=== PATIENT | male | born 1980 | race Caucasian/White ===

== ENCOUNTER 2021-10-28 11:20 | Inpatient (IN) | payer MEDICARE, OTHER ==
[~2021-10-28] VITALS: Ht 177.8 cm; Wt 95.7 kg
[2021-10-28] MEDS ORDERED: VANCOMYCIN 1 GM in IV D5W 250 ML IV ONE (11:30)
[2021-10-28] MEDS ORDERED: PIPERACILLIN /TAZOBACTAM 3.375 G in IV D5W 50 ML IV ONE (11:30)
--- NOTE | 2021-10-28 11:40 | NUR ---
RONALDO HOPE FROM [facility] DUE TO ELEVATED WBC. PT HAS A WOUND ON RLE STARTED [address] HARRELL AT BEDSIDE FOR EVAL.
[2021-10-28 12:08] LABS: BASOPHILS % (AUTO) 0.1 % (0.0-2.0); EOSINOPHILS % (AUTO) 0.1 % (0.0-6.0); HEMATOCRIT 26 % (39-51); HEMOGLOBIN 8.2 g/dL (13.5-17.5); LYMPHOCYTES # (AUTO) 0.3 K/uL (0.8-4.8); LYMPHOCYTES % (AUTO) 1.3 % (20.0-44.0); MEAN CORPUSCULAR HGB CONC 32 g/dl (31.0-36.0); MEAN CORPUSCULAR VOLUME 73 fL (80-96); MONOCYTES # (AUTO) 0.5 K/uL (0.1-1.30); NEUTROPHILS # (AUTO) 24.7 K/uL (1.8-8.9); NEUTROPHILS % (AUTO) 96.5 % (43.0-81.0); PLATELET COUNT (AUTO) 302 K/uL (150-450); RED BLOOD CELL COUNT(AUTO) 3.51 MIL/uL (4.5-6.0); WHITE BLOOD COUNT (AUTO) 25.6 K/uL (4.3-11.0)
--- NOTE | 2021-10-28 12:18 | NUR ---
COVID TEST COLLECTED AND SENT
[2021-10-28 12:26] LABS: ALANINE AMINOTRANSFERASE 32 U/L (12-78); ALBUMIN 2.8 g/dL (3.4-5.0); ALKALINE PHOSPHATASE 106 U/L (46-116); ASPARTATE AMINOTRANSFERASE 30 U/L (15-37); BILIRUBIN,DIRECT 0.2 mg/dL (0.0-0.2); BILIRUBIN,TOTAL 0.6 mg/dL (0.2-1.0); CALCIUM, SERUM 7.2 mg/dL (8.5-10.1); CARBON DIOXIDE 26 mmol/L (21-32); CHLORIDE 91 mmol/L (98-107); CREATININE 4.3 mg/dL (0.6-1.3); GLUCOSE 80 mg/dL (74-106); SODIUM SERUM 126 mmol/L (136-145); TOTAL PROTEIN, SERUM 6.9 g/dL (6.4-8.2); UREA NITROGEN, BLOOD 45 mg/dL (7-18)
--- NOTE | 2021-10-28 13:17 | NUR ---
CALLED NURSING SUP ANTELMO PT BED
[2021-10-28] MEDS ORDERED: ALBU18HF2 IH (13:18)
[2021-10-28] MEDS ORDERED: LEVO150T8 PO (13:18)
[2021-10-28] MEDS ORDERED: DIVA125C2 PO (13:18)
[2021-10-28] MEDS ORDERED: FOLI0.4T6 PO (13:18)
[2021-10-28] MEDS ORDERED: LORA-259 PO (13:18)
[2021-10-28] MEDS ORDERED: MULT-447 PO (13:18)
[2021-10-28] MEDS ORDERED: BETA15CR4 TP (13:18)
[2021-10-28] MEDS ORDERED: ACET-868 PO (13:18)
[2021-10-28] MEDS ORDERED: FERR325T23 PO (13:18)
[2021-10-28] MEDS ORDERED: GABA-532 PO (13:18)
[2021-10-28] MEDS ORDERED: OXYC5TAB3 PO (13:18)
[2021-10-28] MEDS ORDERED: AMIN30LI2 PO (13:18)
[2021-10-28] MEDS ORDERED: LIDOCAINE 2% JEL UROJET 10 ML MM ONE ×2 (15:13)
[2021-10-28] MEDS ORDERED: VANCOMYCIN 500 MG in IV D5W 100 ML IV PRN ×2 (15:30→18:45)
[2021-10-28] MEDS ORDERED: ONDANSETRON HCL/PF 4 MG/2 ML VIAL IVP PRN ×2 (15:30→18:45)
[2021-10-28] MEDS ORDERED: IV NS 0.9% 1,000 ML IV PRN ×2 (15:30→18:45)
[2021-10-28] MEDS ORDERED: MAGNESIUM HYDROXIDE 30 ML UDC PO PRN ×2 (15:30→22:00)
[2021-10-28] MEDS ORDERED: ACETAMINOPHEN 325 MG TABLET PO PRN ×2 (15:30→18:45)
[2021-10-28] MEDS ORDERED: MORPHINE SULFATE INJ 2 MG/ML DISP.SYRIN IV PRN (16:00)
--- NOTE | 2021-10-28 16:01 | NUR ---
URINE COLLECTED AND SENT
[2021-10-28 16:09] LABS: BILIRUBIN,URINE NEGATIVE (NEGATIVE); COLOR,URINE DARK YELLOW (YELLOW); LEUKOCYTE ESTERASE ,URINE MODERATE (NEGATIVE); NITRITE, URINE NEGATIVE (NEGATIVE); PH,URINE 5.5 (5.0-8.0); PROTEIN,URINE 30 mg/dl (NEGATIVE); UGLUCOSE NEGATIVE (NEGATIVE); UROBILINOGEN,URINE 0.2 EU/dL (0.2)
[2021-10-28] MEDS ORDERED: CEFTRIAXONE 2 G in IV D5W 100 ML IV SCH ×2 (16:30→20:00)
[2021-10-28 16:41] LABS: BACTERIA,URINE Many /HPF (None Seen); SQUAMOUS EPITHELIAL CELL,UR Many /HPF (None Seen)
[2021-10-28 16:42] LABS: HYALINE CASTS, URINE Few /LPF (None Seen); WBC,URINE 51-80 /HPF (0-3)
--- NOTE | 2021-10-28 17:22 | NUR ---
ROOM 324-1
--- NOTE | 2021-10-28 17:37 | NUR ---
REPORT GIVE TO ELENITAISSA FOR LLOYD
--- NOTE | 2021-10-28 18:33 | NUR ---
THE PATIENT IS TRANSFERED TO ROOM 324-1 IN STABLE CONDITION AND PER POLICY.
[2021-10-28 18:35] VITALS: BP 94/52
--- NOTE | 2021-10-28 18:35 | NUR ---
RN MS NOTES RECEIVED PT FROM E.R. STAFF VIA [facility], ASSISTED TO BED, MADE COMFORTABLE, PT IS AWAKE, ALERT AND ORIENTED, NO COMPLAINT OF PAIN AT THIS TIME, RESPIRATIONS NORMAL, ON O2 AT 2LPM VIA N/C WITH O2 SAT OF 100%, ROOM SET UP ORIENTATION PROVIDED, VERBALIZED UNDERSTANDING, NEEDS ATTENDED, VITALS TAKEN AND RECORDED.
[2021-10-28] MEDS ORDERED: VANCOMYCIN 500 MG in IV D5W 100ml IV ONE (20:30)
[2021-10-28] MEDS: IV NS 0.9% 1,000 ML IV PRN (20:56)
[2021-10-28] MEDS ORDERED: HEPARIN SODIUM, PORCINE 5000 UNITS/1 ML VIAL SQ SCH (21:00)
[2021-10-28] MEDS: HEPARIN SODIUM, PORCINE 5000 UNITS/1 ML VIAL SQ SCH (22:05)
[2021-10-28] MEDS: MORPHINE SULFATE INJ 2 MG/ML DISP.SYRIN IV PRN (22:07)
[2021-10-29] MEDS: MORPHINE SULFATE INJ 2 MG/ML DISP.SYRIN IV PRN ×5 (02:42→20:16)
--- NOTE | 2021-10-29 05:11 | NUR ---
Closing NOTES: admiteed 10/28 1929 from the ER from [facility] for cellulitis right leg and sepsis He has been afebrile this 12 hours continent using the urinal placed on the bedpan and passed flatus No BM IV fluid running as ordered Medicated with Morphine 2 mg Q 4 hours for right leg pain Noted over his body mulitple open small too some are scabbed no drainage photo of the right leg and wounds in the chart right legs is red up to the groin area and warm to touch right great toe partially amputed noted on the top of the toe steri strips CDI Vanco Random is ordered for this AM
[2021-10-29 07:57] LABS: CALCIUM, SERUM 7.2 mg/dL (8.5-10.1); CREATININE 6.2 mg/dL (0.6-1.3); POTASSIUM 4.1 mmol/L (3.5-5.1)
[2021-10-29 08:00] VITALS: BP 121/54
--- NOTE | 2021-10-29 08:02 | NUR ---
RN MS NOTES RECEIVED PT FROM PM SHIFT. AM RN INTRODUCED SELF. PT IS AWAKE, ALERT AND ORIENTED X4. NO COMPLAINT OF PAIN AT THIS TIME, RESPIRATIONS NORMAL, ON O2 AT 2LPM VIA N/C WITH O2 SAT OF 100%, BEDRAILS UP X2, CALL LIGHT AT BEDSIDE, ROOM SET UP ORIENTATION PROVIDED,VERBALIZED UNDERSTANDING, WILL CONTINUE TO MONITOR.
[2021-10-29] MEDS: MULTIVIT W/MINERALS 1 TAB TABLET PO SCH (08:26)
[2021-10-29] MEDS: LEVOTHYROXINE SODIUM 75 MCG TABLET PO SCH (08:27)
[2021-10-29] MEDS: FOLIC ACID 1 MG TABLET PO SCH (08:30)
[2021-10-29] MEDS: PROSOURCE / PROSTAT (PYXIS) 30 ML UDC PO SCH (08:31)
[2021-10-29] MEDS: HEPARIN SODIUM, PORCINE 5000 UNITS/1 ML VIAL SQ SCH ×2 (10:17→20:19)
[2021-10-29] MEDS: IV NS 0.9% 1,000 ML IV PRN ×2 (10:22→23:21)
--- NOTE | 2021-10-29 10:37 | NUR ---
WOUND CARE CONSULT: PT HAVING PROCEDURE AT THIS TIME. REVIEWED CHART, NURSING DOCUMENTATION AND PHOTOS WHICH INDICATE TOE WOUND AND RT LOWER LEG REDNESS. DPM CONSULT CALLED TO DR HAMPAPUR. AYALA IN AGREEMENT WITH PLAN OF CARE.
[2021-10-29 10:53] LABS: BASOPHILS # (AUTO) 0.1 K/uL (0.0-0.2); BASOPHILS % (AUTO) 0.6 % (0.0-2.0); HEMATOCRIT 23 % (39-51); HEMOGLOBIN 7.4 g/dL (13.5-17.5); LYMPHOCYTES # (AUTO) 0.4 K/uL (0.8-4.8); LYMPHOCYTES % (AUTO) 2.4 % (20.0-44.0); MEAN CORPUSCULAR HGB CONC 33 g/dl (31.0-36.0); MEAN CORPUSCULAR VOLUME 72 fL (80-96); MONOCYTES # (AUTO) 0.5 K/uL (0.1-1.30); MONOCYTES % (AUTO) 2.7 % (2.0-12.0); NEUTROPHILS # (AUTO) 17.2 K/uL (1.8-8.9); NEUTROPHILS % (AUTO) 93.3 % (43.0-81.0); PLATELET COUNT (AUTO) 266 K/uL (150-450); RED BLOOD CELL COUNT(AUTO) 3.13 MIL/uL (4.5-6.0); WHITE BLOOD COUNT (AUTO) 18.4 K/uL (4.3-11.0)
[2021-10-29 11:20] LABS: BAND % (MANUAL) 4 % (0.0-5.0); EOSINOPHILS % (MANUAL) 3 % (0-4); MONOCYTES % (MANUAL) 2 % (0-11.0)
[2021-10-29 11:22] LABS: LYMPHOCYTES % (MANUAL) 1 % (16-48); NEUTROPHILS % (MANUAL) 90 (42-76)
--- NOTE | 2021-10-29 12:07 | NUR ---
PT REQUESTED PAIN MEDS DUE TO GENERALIZED PAIN 01/07. PRN PAIN MED ADMINISTERED BY RN @ 1200. PT REQUESTED OXYGEN, GIVEN 2 L VIA NASAL CANULA, RN WILL CONT TO MONITOR.
--- NOTE | 2021-10-29 15:13 | NUR ---
MS RN NOTE RN ASKED PT FOR LAST BM. PT REPORTS LAST BM WAS 08/24/2021, RN OFFERED PRUNE JUICE, ADVISED PT TO CALL RN/CARPET LAYER HELPER FOR ASSISTANCE IF HE FEELS THE URGE TO HAVE BM, PT VERBALIZED UNDERSTANDING, WILL CONT TO MONITOR.
[2021-10-29 16:00] VITALS: BP 115/56
[2021-10-29] MEDS ORDERED: CEFEPIME 1 GM VIAL IM SCH (17:30)
[2021-10-29] MEDS ORDERED: CEFEPIME 1 GM in IV D5W 50 ML IV SCH (18:00)
--- NOTE | 2021-10-29 18:28 | NUR ---
RN MS CLOSING NOTE MS RN CLOSING NOTES PT IS AWAKE, ALERT AND ORIENTED X4. PRN PAIN MED GIVEN AT 1200 AND 1600 NO COMPLAINT OF PAIN AT THIS TIME, RESPIRATIONS NORMAL, ON O2 AT 2LPM VIA N/C WITH O2 SAT OF 100%, BED RAILS UP X2, CALL LIGHT AT BEDSIDE. WILL ENDORSE.
[2021-10-29 20:00] VITALS: BP 100/57
[2021-10-30] VITALS (8 sets, daily range): BP systolic 108–122; BP diastolic 62–81
[2021-10-30] MEDS: MORPHINE SULFATE INJ 2 MG/ML DISP.SYRIN IV PRN ×6 (03:22→22:29)
--- NOTE | 2021-10-30 04:50 | NUR ---
Closing Notes: alert and orientated X4 enjoys conversation changes his own position in the bed throughtout the night uses the urinal thru the night kept hubert feet elevated thru the night medicated X2 for generalized pain and effective continent
[2021-10-30 05:12] LABS: CREATININE, URINE 94.6 MG/DL (30.0-125.0); URINE TOTAL PROTEIN 115.7 mg/dL (0-11.9)
[2021-10-30 06:53] LABS: BASOPHILS % (AUTO) 0.2 % (0.0-2.0); EOSINOPHILS % (AUTO) 1.8 % (0.0-6.0); HEMATOCRIT 21 % (39-51); LYMPHOCYTES # (AUTO) 0.5 K/uL (0.8-4.8); LYMPHOCYTES % (AUTO) 3.5 % (20.0-44.0); MEAN CORPUSCULAR HGB CONC 34 g/dl (31.0-36.0); MEAN CORPUSCULAR VOLUME 72 fL (80-96); MONOCYTES % (AUTO) 7.3 % (2.0-12.0); NEUTROPHILS # (AUTO) 12.3 K/uL (1.8-8.9); NEUTROPHILS % (AUTO) 87.2 % (43.0-81.0); PLATELET COUNT (AUTO) 220 K/uL (150-450); RED BLOOD CELL COUNT(AUTO) 2.87 MIL/uL (4.5-6.0); WHITE BLOOD COUNT (AUTO) 14.1 K/uL (4.3-11.0)
[2021-10-30 07:18] LABS: CALCIUM, SERUM 7.3 mg/dL (8.5-10.1); MAGNESIUM 1.9 mg/dL (1.8-2.4); PHOSPHORUS 5.5 mg/dL (2.5-4.9); POTASSIUM 4.6 mmol/L (3.5-5.1)
--- NOTE | 2021-10-30 07:29 | NUR ---
MS RN OPENING NOTE RECEIVED PT IN ASLEEP IN BED, EASILY AROUSE. A/O X4, ABLE TO MAKE NEEDS KNOWN. ON RA, TOLERATING WELL. BREATHING EVEN AND UNLABORED. NOT IN ANY SIGN OF RESPIRATORY DISTRESS. IV ACCESS ON LAC G #20 INTACT AND PATENT WITH NS INFUSING AT 150ML/HR. SAFETY MEASURES IN PLACE: BED IN LOWEST AND LOCKED POSITION, SIDE RAILS UP X2, CALL LIGHT WITHIN REACH. WILL CONTINUE TO MONITOR PT.
[2021-10-30 07:30] LABS: HEMOGLOBIN 6.9 g/dL (13.5-17.5)
[2021-10-30 07:41] LABS: CREATININE 7.6 mg/dL (0.6-1.3)
[2021-10-30] MEDS: LEVOTHYROXINE SODIUM 75 MCG TABLET PO SCH (08:09)
--- NOTE | 2021-10-30 08:25 | NUR ---
RN NOTE RECEIVED A CALL FROM BURGLARY INVESTIGATOROSMAN AT 0730 REPORTED CRITICAL LAB VALUE OF HEMOGLOBIN AT 6.9. AND RECEIVED CALL FROM BURGLARY INVESTIGATOR SEPTEMBER AT 0741 REPORTED CRITICAL LAB VALUE OF CREATININE 7.6. DR. JOSUE MADE AWARE OF CRITICAL LABS WITH NO NEW ORDER AT THIS TIME.
[2021-10-30] MEDS: PROSOURCE / PROSTAT (PYXIS) 30 ML UDC PO SCH (08:32)
[2021-10-30] MEDS: MULTIVIT W/MINERALS 1 TAB TABLET PO SCH (08:32)
[2021-10-30] MEDS: FOLIC ACID 1 MG TABLET PO SCH (08:32)
[2021-10-30] MEDS: HEPARIN SODIUM, PORCINE 5000 UNITS/1 ML VIAL SQ SCH ×2 (08:35→21:06)
--- NOTE | 2021-10-30 08:35 | NUR ---
RN NOTE HEPARIN NOT ADMINISTERED. PT'S HEMOGLOBIN IS LOW, AT 6.9.
[2021-10-30 09:07] LABS: *ANA ANTI-CENTROMERE B AB <0.2 AI (0.0-0.9); *ANA ANTI-DNA(DS) AB, QN <1 IU/mL (0-9); *ANA ANTI-JO-1 <0.2 AI (0.0-0.9); *ANA ANTICHROMATIN ANTIBODY <0.2 AI (0.0-0.9); *ANA RNP ANTIBODIES <0.2 AI (0.0-0.9); *ANA SJOGREN'S ANTI-SS-A <0.2 AI (0.0-0.9); *ANA SJOGREN'S ANTI-SS-B <0.2 AI (0.0-0.9); *ANAANTI-SCLERODERMA-70 AB <0.2 AI (0.0-0.9); *ANASMITH AB <0.2 AI (0.0-0.9)
--- NOTE | 2021-10-30 09:59 | NUR ---
WOUND CARE: PT SEEN FOR SKIN ASSESSMENT AND NOTED TO HAVE MULTIPLE HEALED AREAS AND AREAS OF UNEVEN PIGMENTATION, PRESENT ON ADMISSION. PT FOLLOWED BY DPM FOR LOWER EXTREMITIES. PT REQUESTS A AND D OINTMENT FOR HIS ARMS. PT ABLE TO REPOSITION IN BED. LEGS ELEVATED ON PILLOW. WILL SEE PRN.
[2021-10-30] MEDS: VITAMINS A AND D 56.7 GM TUBE TP SCH (10:59)
[2021-10-30] MEDS ORDERED: VITAMINS A AND D 56.7 GM TUBE TP PRN (11:30)
[2021-10-30] MEDS: IV NS 0.9% 1,000 ML IV PRN (12:27)
[2021-10-30 13:47] LABS: BAND % (MANUAL) 1 % (0.0-5.0); LYMPHOCYTES % (MANUAL) 6 % (16-48); MONOCYTES % (MANUAL) 9 % (0-11.0); NEUTROPHILS % (MANUAL) 84 (42-76)
--- NOTE | 2021-10-30 16:35 | NUR ---
RN NOTE BLOOD TRANSFUSION STARTED AT 1614. AFTER 15 MINUTES, NO S/S OF ALLERGIC REACTIONS NOTED. NO COMPLAINED OF CHILLS VOICED AT THIS TIME. VS TAKEN BP, 113/62, P 64, R 18, TEMP 98.3, SPO2 95%. WILL CONTINUE TO MONITOR.
[2021-10-30] MEDS ORDERED: CEFTRIAXONE 1 G in IV D5W 50 ML IV SCH (19:00)
--- NOTE | 2021-10-30 19:20 | NUR ---
MS RN CLOSING NOTE PT IN ASLEEP IN BED, EASILY AROUSE. A/O X4, ABLE TO MAKE NEEDS KNOWN. ON RA, TOLERATING WELL. BREATHING EVEN AND UNLABORED. NOT IN ANY SIGN OF RESPIRATORY DISTRESS. IV ACCESS ON RH G #20 INTACT AND PATENT WITH BLOOD STILL INFUSING. NO SIGNS OF ADVERSE REACTIONS NOTED. ENDORSED TO TIE BINDER NURSE TO END TRANSFUSION. ALL NEEDS ATTENDED. SAFETY MEASURES IN PLACE: BED IN LOWEST AND LOCKED POSITION, SIDE RAILS UP X2, CALL LIGHT WITHIN REACH. ENDORSED TO TIE BINDER NURSE FOR LLOYD.
--- NOTE | 2021-10-30 20:09 | NUR ---
MS/TELE/RN BLOOD TRANSFUSION WAS FINISHED AT 193, PATIENT WAS AWAKE, ALERT, ORIENTED, NO SIGNS OF DISTRESS NOTED, NO S/S OF BLOOD TRANSFUSION REACTIONS NOTED AT THIS THIS TIME. WILL MONITOR.
[2021-10-31 02:30] LABS: BILIRUBIN,URINE NEGATIVE (NEGATIVE); COLOR,URINE YELLOW (YELLOW); LEUKOCYTE ESTERASE ,URINE MODERATE (NEGATIVE); NITRITE, URINE NEGATIVE (NEGATIVE); PROTEIN,URINE TRACE mg/dl (NEGATIVE); UGLUCOSE NEGATIVE (NEGATIVE); UROBILINOGEN,URINE 0.2 EU/dL (0.2)
[2021-10-31 02:54] LABS: CREATININE, URINE 76.4 MG/DL (30.0-125.0); URINE TOTAL PROTEIN 61.9 mg/dL (0-11.9)
[2021-10-31] MEDS ORDERED: oxyCODONE/APAP (5/325 MG) 1 UDTAB TABLET PO ONE (03:30)
--- NOTE | 2021-10-31 04:24 | NUR ---
MS/TELE/RN AT 2300 PATIENT WAS ALREADY SLEEPING, NO SIGNS DISTRESS NOTED. PRESENTLY, PATIENT IS STILL SLEEPING. CALL LIGHT IN REACH, WILL CONTINUE TO MONITOR.
[2021-10-31] MEDS: IV NS 0.9% 1,000 ML IV PRN ×3 (05:49→22:45)
--- NOTE | 2021-10-31 06:19 | NUR ---
MS/TELE/RN AT 221, MORPHINE 2 MG IVP WAS GIVEN, SCANNED THE MEDICATION UPON ADMINISTRATION BUT FOR SOME REASONS, IT DID NOT SHOW UP IN THE EMAR.
[2021-10-31] MEDS: MORPHINE SULFATE INJ 2 MG/ML DISP.SYRIN IV PRN ×4 (06:24→19:53)
[2021-10-31 06:33] LABS: BASOPHILS % (AUTO) 0.1 % (0.0-2.0); EOSINOPHILS % (AUTO) 2.2 % (0.0-6.0); HEMATOCRIT 24 % (39-51); HEMOGLOBIN 7.8 g/dL (13.5-17.5); LYMPHOCYTES # (AUTO) 0.6 K/uL (0.8-4.8); LYMPHOCYTES % (AUTO) 4.6 % (20.0-44.0); MEAN CORPUSCULAR HGB CONC 33 g/dl (31.0-36.0); MEAN CORPUSCULAR VOLUME 74 fL (80-96); MONOCYTES # (AUTO) 1.1 K/uL (0.1-1.30); NEUTROPHILS # (AUTO) 11.3 K/uL (1.8-8.9); NEUTROPHILS % (AUTO) 85.1 % (43.0-81.0); PLATELET COUNT (AUTO) 250 K/uL (150-450); RED BLOOD CELL COUNT(AUTO) 3.25 MIL/uL (4.5-6.0); WHITE BLOOD COUNT (AUTO) 13.3 K/uL (4.3-11.0)
--- NOTE | 2021-10-31 06:45 | NUR ---
MS/TELE/RN AT 0634, MORPHINE 2 MG IVP WAS GIVEN FOR PAIN LEVEL 10/10. PATIENT IS STILL AWAKE, ALERT, AT THIS TIME, PATIENT IS TALKING TO SELF, NO SIGNS OF DISTRESS NOTED, CALL LIGHT IN REACH, ALL NEEDS ATTENDED AT THIS TIME, WILL CONTINUE TO MONITOR.
--- NOTE | 2021-10-31 06:52 | NUR ---
MS/TELE/RN PERCOCET 5/325 PO X 1 WAS NOT ADMINISTERED AT 0330 THE PATIENT WAS ALREADY SLEEPING AFTER MORPHINE 2 MG IVP WAS GIVEN AT 0224.
[2021-10-31 07:08] LABS: ALBUMIN 2.2 g/dL (3.4-5.0); BILIRUBIN,TOTAL 0.4 mg/dL (0.2-1.0); CALCIUM, SERUM 7.1 mg/dL (8.5-10.1); MAGNESIUM 2.1 mg/dL (1.8-2.4); PHOSPHORUS 5.9 mg/dL (2.5-4.9); POTASSIUM 4.5 mmol/L (3.5-5.1); TOTAL PROTEIN, SERUM 6.5 g/dL (6.4-8.2)
[2021-10-31 07:18] LABS: SQUAMOUS EPITHELIAL CELL,UR Few /HPF (None Seen)
[2021-10-31 07:19] LABS: BACTERIA,URINE Moderate /HPF (None Seen)
[2021-10-31 08:07] LABS: *SPE A/G RATIO 0.7 (0.7-1.7); *SPE ALPHA-1-GLOBULIN 0.5 g/dL (0.0-0.4); *SPE BETA GLOBULIN 1.1 g/dL (0.7-1.3); *SPE M-SPIKE Not Observed g/dL (Not Observed)
[2021-10-31 08:24] LABS: CREATININE 7.7 mg/dL (0.6-1.3)
[2021-10-31] MEDS: FOLIC ACID 1 MG TABLET PO SCH (08:42)
[2021-10-31] MEDS: MULTIVIT W/MINERALS 1 TAB TABLET PO SCH (08:42)
[2021-10-31] MEDS: HEPARIN SODIUM, PORCINE 5000 UNITS/1 ML VIAL SQ SCH ×2 (08:43→22:44)
[2021-10-31] MEDS: LEVOTHYROXINE SODIUM 75 MCG TABLET PO SCH (08:45)
[2021-10-31] MEDS: PROSOURCE / PROSTAT (PYXIS) 30 ML UDC PO SCH (08:49)
[2021-10-31 08:52] VITALS: BP 126/75
--- NOTE | 2021-10-31 08:55 | NUR ---
RN NOTE RECEIVED A CALL FROM [employer], SEPTEMBER AT 0824 REPORTED CRITICAL LAB VALUE OF CREATININE 7.[address] JOSUE MADE AWARE OF CRITICAL LABS WITH NO NEW ORDER AT THIS TIME.
[2021-10-31] MEDS: VITAMINS A AND D 56.7 GM TUBE TP SCH (09:03)
[2021-10-31] MEDS ORDERED: VANCOMYCIN 500 MG in IV D5W 100 ML IV SCH (12:00)
[2021-10-31 13:08] LABS: *ANCA ATYPICAL p-ANCA <1:20 titer (Neg:<1:20); *ANCA CYTOPLASMIC (C-ANCA) <1:20 titer (Neg:<1:20); *ANCA PERINUCLEAR (P-ANCA) <1:20 titer (Neg:<1:20)
[2021-10-31 15:16] LABS: EOSINOPHIL,URINE Rare
[2021-10-31 15:50] VITALS: BP 124/62
--- NOTE | 2021-10-31 18:37 | NUR ---
MS RN CLOSING NOTE PT IN BED AWAKE WATCHING TV. A/O X4, ABLE TO MAKE NEEDS KNOWN. ON RA, TOLERATING WELL. BREATHING EVEN AND UNLABORED. NOT IN ANY SIGN OF RESPIRATORY DISTRESS. IV ACCESS ON RH G #20 INTACT AND PATENT WITH NS INFUSING AT 150ML/HR. ALL NEEDS ATTENDED. SAFETY MEASURES IN PLACE: BED IN LOWEST AND LOCKED POSITION, SIDE RAILS UP X2, CALL LIGHT WITHIN REACH. WILL ENDORSE TO BENCH WORKER HOLLOW HANDLE NURSE FOR LLOYD.
[2021-10-31] MEDS ORDERED: CEFTRIAXONE 2 G in IV D5W 50 ML IV SCH (19:00)
--- NOTE | 2021-10-31 19:58 | NUR ---
MS/TELE/RN PATIENT IS AWAKE, ALERT AND ORIENTED, C/O RT. LEG PAIN 10/10. MEDICATED WITH MORPHINE 2 MG IVP, WILL MONITOR.
[2021-10-31 20:00] VITALS: BP 121/44
[2021-10-31 23:35] LABS: BILIRUBIN,URINE NEGATIVE (NEGATIVE); COLOR,URINE YELLOW (YELLOW); LEUKOCYTE ESTERASE ,URINE TRACE (NEGATIVE); NITRITE, URINE NEGATIVE (NEGATIVE); PROTEIN,URINE NEGATIVE (NEGATIVE); UGLUCOSE NEGATIVE (NEGATIVE); UROBILINOGEN,URINE 0.2 EU/dL (0.2)
[2021-11-01] MEDS: IV NS 0.9% 1,000 ML IV PRN ×2 (04:50→18:43)
[2021-11-01] MEDS: MORPHINE SULFATE INJ 2 MG/ML DISP.SYRIN IV PRN ×5 (05:57→22:21)
--- NOTE | 2021-11-01 06:03 | NUR ---
MS/TELE/RN AWAKE, C/O PAIN RLE 03/09, MEDICATED WITH MORPHINE 2 MG IVP ORDERED, ALL NEEDS ATTENDED AT THIS TIME, WILL CONTINUE TO MONITOR.
[2021-11-01 06:39] LABS: BACTERIA,URINE 2+ /HPF (None Seen)
[2021-11-01] MEDS: LEVOTHYROXINE SODIUM 75 MCG TABLET PO SCH (07:48)
[2021-11-01 08:00] VITALS: BP 110/59
--- NOTE | 2021-11-01 08:40 | NUR ---
MS RN OPENING NOTES RECEIVED PATIENT AWAKE IN HIS BED COMFORTABLY. A/O X 4. NO SIGNS OF DISTRESS, SOB AND DISCOMFORTED NOTED. R HAND 20G, PATENT & INTACT. SAFETY MEASURES INITIATED: CALL LIGHT IN REACH, BED ON LOWER POSITION. ALL NEEDS ATTENDED AT THIS TIME. WILL CONTINUE TO MONITOR FOR LLOYD.
[2021-11-01] MEDS: PROSOURCE / PROSTAT (PYXIS) 30 ML UDC PO SCH (08:45)
[2021-11-01] MEDS: MULTIVIT W/MINERALS 1 TAB TABLET PO SCH (08:54)
[2021-11-01] MEDS: FOLIC ACID 1 MG TABLET PO SCH (08:54)
[2021-11-01] MEDS: HEPARIN SODIUM, PORCINE 5000 UNITS/1 ML VIAL SQ SCH ×2 (08:56→22:00)
[2021-11-01] MEDS: VITAMINS A AND D 56.7 GM TUBE TP SCH (09:02)
[2021-11-01 09:49] LABS: CALCIUM, SERUM 7.5 mg/dL (8.5-10.1); CREATININE 6.3 mg/dL (0.6-1.3); POTASSIUM 4.7 mmol/L (3.5-5.1)
[2021-11-01 16:32] VITALS: BP 140/61
[2021-11-01] MEDS: CEFTRIAXONE 2 G in IV D5W 100 ML IV SCH (19:04)
--- NOTE | 2021-11-01 19:30 | NUR ---
MS/RN OPENING NOTE RECEIVED PATIENT RESTING IN BED. AWAKE, ALERT AND ORIENTED X 4. ABLE TO MAKE NEEDS KNOWN. DENIES PAIN AT THIS TIME. CONTINUES ON ROOM AIR WITH NO S/SX OF RESPIRATORY DISTRESS NOTED. IV ACCESS TO RIGHT HAND #20G INTACT AND PATENT. CONTINUES ON IVF NS @ 150ML/HR. CONTINUES ON IV ABX. CONTINUES ON REGULAR DIET WITH NO S/SX OF ASPIRATION NOTED. CALL LIGHT WITHIN REACH. ASPIRATION, FALL AND SAFETY PRECAUTIONS MAINTAINED. ALL NEEDS ATTENDED TO AT THIS TIME.
--- NOTE | 2021-11-01 19:34 | NUR ---
MS RN CLOSING NOTES PATIENT IS AWAKE IN HIS BED COMFORTABLY. A/O X 4 AND ABLE TO COMMUNICATE HIS NEEDS. PATIENT IS BIZARRE AND START TALKING TO HIMSELF. PATIENT IS IN ROOM AIR, NO SIGNS OF DISTRESS, SOB AND DISCOMFORTED NOTED. R HAND 20G, PATENT & INTACT. SAFETY MEASURES INITIATED: CALL LIGHT IN REACH, BED ON LOWER POSITION. ALL NEEDS ATTENDED AT THIS TIME. WILL ENDORSE TO INCOMING SHIFT FOR LLOYD.
[2021-11-01 20:00] VITALS: BP 117/63
[2021-11-02] MEDS: IV NS 0.9% 1,000 ML IV PRN ×2 (03:09→12:21)
[2021-11-02] MEDS: MORPHINE SULFATE INJ 2 MG/ML DISP.SYRIN IV PRN ×5 (03:12→23:39)
--- NOTE | 2021-11-02 05:00 | NUR ---
MS/RN NOTE PATIENTS IV NOTED TO BE LEAKING. IV TO RIGHT HAND DISCONTINUED WITH TIP INTACT. PRESSURE DRESSING APPLIED. NEW IV INSERTED TO RIGHT AC #20G. RESTARTED IVF.
[2021-11-02 06:25] LABS: CALCIUM, SERUM 7.8 mg/dL (8.5-10.1); CREATININE 5.1 mg/dL (0.6-1.3); POTASSIUM 4.9 mmol/L (3.5-5.1)
--- NOTE | 2021-11-02 06:30 | NUR ---
MS/RN CLOSING NOTE PATIENT CURRENTLY SLEEPING IN BED. ALERT AND ORIENTED X 4. ABLE TO MAKE NEEDS KNOWN. DENIES PAIN AT THIS TIME. CONTINUES ON ROOM AIR WITH NO S/SX OF RESPIRATORY DISTRESS NOTED. IV ACCESS TO RIGHT AC #20G INTACT AND PATENT. CONTINUES ON IVF NS @ 150ML/HR. CONTINUES ON IV ABX. CONTINUES ON REGULAR DIET WITH NO S/SX OF ASPIRATION NOTED. CALL LIGHT WITHIN REACH. ASPIRATION, FALL AND SAFETY PRECAUTIONS MAINTAINED. ALL NEEDS ATTENDED TO AT THIS TIME. WILL ENDORSE PLAN OF CARE TO ONCOMING SHIFT RN.
[2021-11-02] MEDS: LEVOTHYROXINE SODIUM 75 MCG TABLET PO SCH (08:23)
[2021-11-02] MEDS: MULTIVIT W/MINERALS 1 TAB TABLET PO SCH (08:23)
[2021-11-02] MEDS: FOLIC ACID 1 MG TABLET PO SCH (08:23)
[2021-11-02] MEDS: HEPARIN SODIUM, PORCINE 5000 UNITS/1 ML VIAL SQ SCH ×2 (08:25→21:04)
[2021-11-02] MEDS: VITAMINS A AND D 56.7 GM TUBE TP SCH (09:08)
[2021-11-02] MEDS: PROSOURCE / PROSTAT (PYXIS) 30 ML UDC PO SCH (09:08)
[2021-11-02 10:05] LABS: BASOPHILS % (AUTO) 0.4 % (0.0-2.0); HEMATOCRIT 24 % (39-51); HEMOGLOBIN 7.9 g/dL (13.5-17.5); LYMPHOCYTES # (AUTO) 0.8 K/uL (0.8-4.8); LYMPHOCYTES % (AUTO) 7.6 % (20.0-44.0); MEAN CORPUSCULAR HGB CONC 33 g/dl (31.0-36.0); MEAN CORPUSCULAR VOLUME 75 fL (80-96); MONOCYTES % (AUTO) 9.7 % (2.0-12.0); NEUTROPHILS # (AUTO) 8.2 K/uL (1.8-8.9); NEUTROPHILS % (AUTO) 79.3 % (43.0-81.0); PLATELET COUNT (AUTO) 381 K/uL (150-450); RED BLOOD CELL COUNT(AUTO) 3.24 MIL/uL (4.5-6.0); WHITE BLOOD COUNT (AUTO) 10.4 K/uL (4.3-11.0)
[2021-11-02] MEDS ORDERED: VANCOMYCIN 500 MG in IV D5W 100 ML IV SCH (12:00)
[2021-11-02] MEDS: CEFTRIAXONE 2 G in IV D5W 100 ML IV SCH (18:47)
--- NOTE | 2021-11-02 19:30 | NUR ---
MS RN OPENING NOTES RECEIVED PATIENT IN BED; AWAKE, ALERT AND ORIENTED X4. BREATHING IS EVEN AND NONLABORED. NOT IN ANY FORM OF RESPIRATORY DISTRESS. ON ROOM AIR, WELL TOLERATED. WITH IV ACCESS ON RIGHT ANTECUBITAL G#20 INFUSING WITH NS 1L REGULATED @ 150ML/HR; PATENT, INTACT AND FLUSHES WELL. ABLE TO MAKE NEEDS KNOWN. SAFETY MEASURES IMPLEMENTED: CALL LIGHT AND TABLE WITHIN EASY REACH, SIDE RAILS UP X2, BED IN LOWEST LOCKED POSITION. WILL CONTINUE TO MONITOR
[2021-11-02 20:00] VITALS: BP 146/72
[2021-11-02 20:05] VITALS: BP 146/72
[2021-11-03] MEDS: IV NS 0.9% 1,000 ML IV PRN (04:48)
[2021-11-03] MEDS: MORPHINE SULFATE INJ 2 MG/ML DISP.SYRIN IV PRN ×3 (04:50→20:58)
[2021-11-03 06:34] LABS: BASOPHILS # (AUTO) 0.1 K/uL (0.0-0.2); BASOPHILS % (AUTO) 0.5 % (0.0-2.0); EOSINOPHILS % (AUTO) 4.9 % (0.0-6.0); HEMATOCRIT 24 % (39-51); HEMOGLOBIN 7.7 g/dL (13.5-17.5); LYMPHOCYTES # (AUTO) 1.1 K/uL (0.8-4.8); LYMPHOCYTES % (AUTO) 11.4 % (20.0-44.0); MEAN CORPUSCULAR HGB CONC 33 g/dl (31.0-36.0); MEAN CORPUSCULAR VOLUME 74 fL (80-96); MONOCYTES # (AUTO) 1.1 K/uL (0.1-1.30); MONOCYTES % (AUTO) 11.4 % (2.0-12.0); NEUTROPHILS # (AUTO) 7.2 K/uL (1.8-8.9); NEUTROPHILS % (AUTO) 71.8 % (43.0-81.0); PLATELET COUNT (AUTO) 435 K/uL (150-450); RED BLOOD CELL COUNT(AUTO) 3.16 MIL/uL (4.5-6.0)
--- NOTE | 2021-11-03 06:54 | NUR ---
MS RN CLOSING NOTES PATIENT IN BED RESTING COMFORTABLY, A/OX4. DUE MEDS GIVEN. ALL NEEDS MET. SAFETY MEASURES IN PLACE. ENDORSED TO MORNING SHIFT FOR LLOYD.
[2021-11-03 06:56] LABS: CREATININE 4.2 mg/dL (0.6-1.3); PHOSPHORUS 5.8 mg/dL (2.5-4.9)
--- NOTE | 2021-11-03 07:46 | NUR ---
RN OPENING NOTE- PATIENT IN BED; AWAKE, ALERT AND ORIENTED X4. COMFORTABLE AT PRESENT. BREATHING IS EVEN AND NON-LABORED. NO RESPIRATORY DISTRESS. ON ROOM AIR, WELL TOLERATED. WITH IV ACCESS ON RIGHT ANTECUBITAL G#20 IVF 150ML/HR; PATENT. ABLE TO MAKE NEEDS KNOWN. SAFETY MEASURES IMPLEMENTED: CALL LIGHT AND TABLE WITHIN EASY REACH, SIDE RAILS UP X2, BED IN LOWEST LOCKED POSITION. WILL CONTINUE TO MONITOR / ASSIST
[2021-11-03 08:00] VITALS: BP 132/50
[2021-11-03] MEDS: LEVOTHYROXINE SODIUM 75 MCG TABLET PO SCH (08:03)
[2021-11-03 08:12] LABS: EOSINOPHILS % (MANUAL) 6 % (0-4); LYMPHOCYTES % (MANUAL) 7 % (16-48); MONOCYTES % (MANUAL) 8 % (0-11.0); NEUTROPHILS % (MANUAL) 79 (42-76)
[2021-11-03] MEDS: FOLIC ACID 1 MG TABLET PO SCH (08:51)
[2021-11-03] MEDS: MULTIVIT W/MINERALS 1 TAB TABLET PO SCH (08:51)
[2021-11-03] MEDS: VITAMINS A AND D 56.7 GM TUBE TP SCH (08:52)
[2021-11-03] MEDS: HEPARIN SODIUM, PORCINE 5000 UNITS/1 ML VIAL SQ SCH ×2 (08:52→21:03)
[2021-11-03] MEDS: PROSOURCE / PROSTAT (PYXIS) 30 ML UDC PO SCH (08:52)
[2021-11-03] MEDS ORDERED: LORAZEPAM 1 MG TABLET PO PRN (11:00)
[2021-11-03] MEDS ORDERED: VANCOMYCIN 1 GM in IV D5W 250 ML IV SCH (12:00)
--- NOTE | 2021-11-03 12:00 | NUR ---
RN NOTE- IV COMPROMISED. HARD STICK. MIDLINE ORDERED. PHARMACY NOTIFIED RE [facility]. STATED ADMINISTER AFTER MIDLINE INSERTED
[2021-11-03 12:06] LABS: *SPE A/G RATIO 0.7 (0.7-1.7); *SPE ALPHA-1-GLOBULIN 0.5 g/dL (0.0-0.4); *SPE BETA GLOBULIN 1.1 g/dL (0.7-1.3); *SPE M-SPIKE Not Observed g/dL (Not Observed)
[2021-11-03] MEDS ORDERED: HYDROCODONE/APAP 5/325MG TABLET PO STA ×2 (12:55→17:08)
[2021-11-03 16:00] VITALS: BP 121/60
--- NOTE | 2021-11-03 19:51 | NUR ---
MS RN OPENING NOTES RECEIVED PATIENT AA/O X 4.ON RM AIR CONCHITA WELL NO SIGNS SOB/DISTRESS NOTED. R HAND 20G, PATENT & INTACT. SAFETY MEASURES IN PLACE.CALL LIGHT IN REACH, BED ON LOWER POSITION. ALL NEEDS ATTENDED AT THIS TIME. WILL CONTINUE TO MONITOR
[2021-11-03 20:00] VITALS: BP 130/56
[2021-11-03] MEDS: VANCOMYCIN 1 GM in IV D5W 250 ML IV SCH (20:56)
--- NOTE | 2021-11-03 20:57 | NUR ---
RN NOTES PT COMPLAINED RIGHT LEG PAIN 9.PRN MORPHINE 2MG WAS GIVEN NO SIGN A/R NOTED.
[2021-11-03 23:50] VITALS: BP 130/56
--- NOTE | 2021-11-04 01:56 | NUR ---
RN NOTES PT COMPLAINED RIGHT LEG PAIN 9.PRN MORPHINE 2MG WAS GIVEN NO SIGN A/R NOTED.
[2021-11-04] MEDS: MORPHINE SULFATE INJ 2 MG/ML DISP.SYRIN IV PRN ×5 (01:59→22:16)
--- NOTE | 2021-11-04 06:07 | NUR ---
MS RN CLOSING NOTES PATIENT IS IN BED AAOX4.ON ROOM AIR, NO SIGNS SOB/DISTRESS NOTED.BREATHING EVEN AND UNLABORED.IV ACCSS ZEYNEP MIDLINE 18G, PATENT & INTACT.ALL DUE MEDS GIVEN ORDER. ALL NEED ATTENDED.CALL LIGHT IN REACH, BED LOWER POSITION AND LOCKED.WILL ENDORSE TO INCOMING SHIFT
[2021-11-04 06:44] LABS: BASOPHILS % (AUTO) 0.5 % (0.0-2.0); EOSINOPHILS % (AUTO) 5.1 % (0.0-6.0); HEMATOCRIT 24 % (39-51); LYMPHOCYTES # (AUTO) 1.3 K/uL (0.8-4.8); LYMPHOCYTES % (AUTO) 12.9 % (20.0-44.0); MEAN CORPUSCULAR HGB CONC 33 g/dl (31.0-36.0); MEAN CORPUSCULAR VOLUME 74 fL (80-96); MONOCYTES # (AUTO) 1.1 K/uL (0.1-1.30); MONOCYTES % (AUTO) 10.8 % (2.0-12.0); NEUTROPHILS % (AUTO) 70.7 % (43.0-81.0); PLATELET COUNT (AUTO) 534 K/uL (150-450); RED BLOOD CELL COUNT(AUTO) 3.29 MIL/uL (4.5-6.0)
--- NOTE | 2021-11-04 07:26 | NUR ---
MS RN OPENING NOTES RECEIVED PATIENT AWAKE IN BED IN NO ACUTE SIGNS OF DISTRESS. A/O X4.ABLE TO MAKE NEEDS KNOWN, DENIES PAIN OR ANY DISCOMFORTS AT THIS TIME. ON ROOM AIR, BREATHING IS EVEN AND UNLABORED. ZEYNEP MIDLINE g#18 INTACT AND FLUSHES WELL. SAFETY MEASURES IN PLACED: CALL LIGHT AND TABLE WITHIN EASY REACH, SIDE RAILS UP X2, BED IN LOWEST LOCKED POSITION. WILL CONTINUE TO MONITOR
[2021-11-04] MEDS: LEVOTHYROXINE SODIUM 75 MCG TABLET PO SCH (07:27)
[2021-11-04 08:00] VITALS: BP 149/81
[2021-11-04 08:17] LABS: CREATININE 3.3 mg/dL (0.6-1.3)
[2021-11-04] MEDS: PROSOURCE / PROSTAT (PYXIS) 30 ML UDC PO SCH (08:53)
[2021-11-04] MEDS: FOLIC ACID 1 MG TABLET PO SCH (08:54)
[2021-11-04] MEDS: MULTIVIT W/MINERALS 1 TAB TABLET PO SCH (08:54)
[2021-11-04] MEDS: HEPARIN SODIUM, PORCINE 5000 UNITS/1 ML VIAL SQ SCH (08:57)
--- NOTE | 2021-11-04 09:00 | NUR ---
RN NOTES PT C/O ACHING RIGHT LOWER LEG AND FOOT, MORPHINE 2 MG IVP ADMINISTERED AT 0855. WILL CONTINUE TO MONITOR AND REASSESS PT.
[2021-11-04] MEDS: VITAMINS A AND D 56.7 GM TUBE TP SCH (09:01)
[2021-11-04 11:07] LABS: *ANCANTIMYELOPEROXIDASE (MPO) <9.0 U/mL (0.0-9.0); *ANCANTIPROTEINASE 3 (PR-3) AB <3.5 U/mL (0.0-3.5)
--- NOTE | 2021-11-04 13:56 | NUR ---
RN NOTES PT C/O GENERALIZED PAIN, 10/10 SCALE. MORPHINE 2MG IVP ADMINISTERED AT 1353. WILL CONTINUE TO MONITOR AND REASSESS PT.
[2021-11-04] MEDS: IV NS 0.9% 1,000 ML IV PRN (14:02)
[2021-11-04 16:00] VITALS: BP 122/64
--- NOTE | 2021-11-04 18:00 | NUR ---
RN NOTES PT C/O GENERALIZED PAIN, 9/10 SCALE. MORPHINE 2MG IVP ADMINISTERED AT 1800. WILL CONTINUE TO MONITOR AND REASSESS PT.
--- NOTE | 2021-11-04 18:47 | NUR ---
MS RN CLOSING NOTES PATIENT AWAKE IN BED. NO ACUTE SIGNS OF DISTRESS. A/O X4. STABLE ON ROOM AIR, BREATHING IS EVEN AND UNLABORED. ZEYNEP MIDLINE G#18 INTACT AND FLUSHES WELL. ALL DUE MEDS GIVEN. SAFETY MEASURES MAINTAINED: CALL LIGHT AND TABLE WITHIN EASY REACH, SIDE RAILS UP X2, BED IN LOWEST LOCKED POSITION. WILL CONTINUE TO MONITOR. WILL ENDORSE TO NEXT SHIFT FOR LLOYD.
[2021-11-04] MEDS: VANCOMYCIN 1 GM in IV D5W 250 ML IV SCH (21:45)
[2021-11-04 22:00] VITALS: BP 134/71
--- NOTE | 2021-11-04 22:16 | NUR ---
RN NOTES PT C/O GENERALIZED PAIN, 9/10 SCALE. MORPHINE 2MG IVP ADMINISTERED AT 2216 WILL CONTINUE TO MONITOR AND REASSESS PT.
[2021-11-05] MEDS: MORPHINE SULFATE INJ 2 MG/ML DISP.SYRIN IV PRN ×5 (03:06→22:17)
--- NOTE | 2021-11-05 03:10 | NUR ---
RN NOTES PT C/O GENERALIZED PAIN, 9/10 SCALE. MORPHINE 2MG IVP ADMINISTERED AT 0306 WILL CONTINUE TO MONITOR AND REASSESS PT.
[2021-11-05] MEDS: IV NS 0.9% 1,000 ML IV PRN (03:13)
[2021-11-05 06:39] LABS: BASOPHILS % (AUTO) 0.4 % (0.0-2.0); EOSINOPHILS % (AUTO) 4.4 % (0.0-6.0); HEMATOCRIT 24 % (39-51); LYMPHOCYTES # (AUTO) 1.3 K/uL (0.8-4.8); LYMPHOCYTES % (AUTO) 13.6 % (20.0-44.0); MEAN CORPUSCULAR HGB CONC 33 g/dl (31.0-36.0); MEAN CORPUSCULAR VOLUME 74 fL (80-96); MONOCYTES # (AUTO) 0.9 K/uL (0.1-1.30); MONOCYTES % (AUTO) 9.5 % (2.0-12.0); NEUTROPHILS # (AUTO) 6.6 K/uL (1.8-8.9); NEUTROPHILS % (AUTO) 72.1 % (43.0-81.0); PLATELET COUNT (AUTO) 539 K/uL (150-450); RED BLOOD CELL COUNT(AUTO) 3.28 MIL/uL (4.5-6.0); WHITE BLOOD COUNT (AUTO) 9.2 K/uL (4.3-11.0)
[2021-11-05 06:51] LABS: CALCIUM, SERUM 8.4 mg/dL (8.5-10.1); CREATININE 2.6 mg/dL (0.6-1.3); POTASSIUM 4.9 mmol/L (3.5-5.1)
--- NOTE | 2021-11-05 08:11 | NUR ---
MS RN OPENING NOTE Patient in bed, asleep. A/O x 4. On room air, breathing evenly and unlabored. No SOB or s/s of distress noted. IV access on ZEYNEP midline SL, intact and patent. Safety precautions in place: bed in low, locked position; siderails up x 2; call light within reach,. Will continue to monitor.
[2021-11-05 08:30] LABS: BAND % (MANUAL) 2 % (0.0-5.0); EOSINOPHILS % (MANUAL) 6 % (0-4); LYMPHOCYTES % (MANUAL) 9 % (16-48); MONOCYTES % (MANUAL) 10 % (0-11.0); NEUTROPHILS % (MANUAL) 73 (42-76)
[2021-11-05] MEDS: PROSOURCE / PROSTAT (PYXIS) 30 ML UDC PO SCH (08:52)
[2021-11-05] MEDS: FOLIC ACID 1 MG TABLET PO SCH (08:54)
[2021-11-05] MEDS: LEVOTHYROXINE SODIUM 75 MCG TABLET PO SCH (08:54)
[2021-11-05] MEDS: MULTIVIT W/MINERALS 1 TAB TABLET PO SCH (08:54)
[2021-11-05] MEDS: VITAMINS A AND D 56.7 GM TUBE TP SCH (08:54)
--- NOTE | 2021-11-05 09:03 | NUR ---
RN NOTE Patient complained of pain on Right side of body, PRN morphine given. Will continue to monitor.
--- NOTE | 2021-11-05 13:00 | NUR ---
RN NOTE Report given to DELLA Austin for LLOYD.
--- NOTE | 2021-11-05 18:54 | NUR ---
RN CLOSING NOTES PATIENT IN BED, AWAKE, A/O X4, NO SIGNS OF ACUTE DISTRESS NOTED. STABLE ON ROOM AIR, BREATHING EVEN AND UNLABORED. IV ACCESS ON RIGHT UPPER ARM MIDLINE, INTACT AND PATENT, WITH NS @150ML/HR RUNNING. MEDICATED FOR PAIN NEEDED. SAFETY MEASURE MAINTAINED: BED IN LOWEST AND LOCKED POSITION, SIDE RAILS UP X2, CALL LIGHT PLACED WITHIN EASY REACH. WILL ENDORSE TO NEXT SHIFT FOR CONTINUITY OF CARE.
--- NOTE | 2021-11-05 19:15 | NUR ---
MS RN NOTES RECEIVED ON BED A/O X4,BREATHING EASY,NO SOB,IVF NS AT 150ML/HR RATE,INFUSING ON ZEYNEP MIDLINE,SITE PATENT.CONTINENT USING URINAL,RIGHT LEG APPEARS SWOLLEN AND SLIGHT REDNESS NOTED.CALL LIGHT IN REACH,NEEDS ANTICIPATED.
[2021-11-05 20:00] VITALS: BP 131/66
--- NOTE | 2021-11-05 22:17 | NUR ---
MS RN NOTES C/O PAIN 10/10 ON PAIN SCALE ON RIGHT EAR,MORPHINE 2MG IV GIVEN ORDERED.VITAL SIGNS STABLE.
[2021-11-06] MEDS: IV NS 0.9% 1,000 ML IV PRN ×4 (00:32→22:34)
[2021-11-06] MEDS: MORPHINE SULFATE INJ 2 MG/ML DISP.SYRIN IV PRN ×5 (03:05→20:23)
--- NOTE | 2021-11-06 03:05 | NUR ---
MS RN NOTES AWAKE,C/O RIGHT EAR PAIN 8/10 ON PAIN SCALE,MORPHINE 2MG IV GIVEN ORDERED.VITAL SIGNS WITH IN NORMAL LIMITS
[2021-11-06 05:55] LABS: BASOPHILS % (AUTO) 0.5 % (0.0-2.0); EOSINOPHILS % (AUTO) 3.8 % (0.0-6.0); HEMATOCRIT 25 % (39-51); HEMOGLOBIN 8.2 g/dL (13.5-17.5); LYMPHOCYTES # (AUTO) 1.4 K/uL (0.8-4.8); LYMPHOCYTES % (AUTO) 15.8 % (20.0-44.0); MEAN CORPUSCULAR HGB CONC 32 g/dl (31.0-36.0); MEAN CORPUSCULAR VOLUME 74 fL (80-96); MONOCYTES # (AUTO) 0.8 K/uL (0.1-1.30); MONOCYTES % (AUTO) 8.6 % (2.0-12.0); NEUTROPHILS # (AUTO) 6.3 K/uL (1.8-8.9); NEUTROPHILS % (AUTO) 71.3 % (43.0-81.0); PLATELET COUNT (AUTO) 519 K/uL (150-450); RED BLOOD CELL COUNT(AUTO) 3.42 MIL/uL (4.5-6.0); WHITE BLOOD COUNT (AUTO) 8.9 K/uL (4.3-11.0)
[2021-11-06 06:15] LABS: CALCIUM, SERUM 8.2 mg/dL (8.5-10.1); CREATININE 2.3 mg/dL (0.6-1.3); POTASSIUM 4.7 mmol/L (3.5-5.1)
--- NOTE | 2021-11-06 06:33 | NUR ---
MS RN NOTES NO SIGNIFICANT CHANGE IN STATUS.PAIN MANAGEMENT EFFECTIVE,ABLE TO SLEEP,IV ABX DISCONTINUED BT ID,CELLULITIS BLE IMPROVED.IN NO ACUTE DISTRESS.
--- NOTE | 2021-11-06 07:34 | NUR ---
MS RN OPENING NOTE Patient in bed, awake. A/O x 4, able to make needs known. On room air, breathing evenly and unlabored. No SOB or s/s of distress noted. IV access on ZEYNEP midline infusing NS at 150 ml/hr. Safety precautions in place: bed in low, locked position; siderails up x 2; call light within reach,. Will continue to monitor.
[2021-11-06] MEDS: LEVOTHYROXINE SODIUM 75 MCG TABLET PO SCH (08:00)
--- NOTE | 2021-11-06 08:00 | NUR ---
RN NOTE Patient complained of pain on right foot and back of head, 8/10 on pain scale. PRN Morphine 2mg given. Will continue to monitor.
[2021-11-06] MEDS: VITAMINS A AND D 56.7 GM TUBE TP SCH (08:04)
[2021-11-06] MEDS: MULTIVIT W/MINERALS 1 TAB TABLET PO SCH (08:04)
[2021-11-06] MEDS: PROSOURCE / PROSTAT (PYXIS) 30 ML UDC PO SCH (08:04)
[2021-11-06] MEDS: FOLIC ACID 1 MG TABLET PO SCH (08:04)
[2021-11-06 08:11] VITALS: BP 138/71
--- NOTE | 2021-11-06 12:50 | NUR ---
RN NOTE Patient complained of pain on right foot and back of head, 8/10 on pain scale. PRN Morphine 2mg given. Will continue to monitor.
--- NOTE | 2021-11-06 16:22 | NUR ---
RN NOTE Patient complained of pain on right foot 8/10 on pain scale. PRN Morphine 2mg given. Will continue to monitor.
[2021-11-06 16:27] VITALS: BP 136/50
[2021-11-06] MEDS: CLINDAMYCIN HCL 150 MG CAPSULE PO SCH ×2 (17:45→23:20)
--- NOTE | 2021-11-06 18:50 | NUR ---
MS RN CLOSING NOTE Patient in bed, resting. A/O x 4, able to make needs known. Stable on room air, breathing evenly and unlabored. No SOB or s/s of distress noted. IV access on ZEYNEP midline infusing NS at 150 ml/hr. All needs attended to. Due meds given. Patient denies any pain or discomfort at this time. Safety precautions maintained: bed in low, locked position; siderails up x 2; call light within reach,. Will endorse to night shift manager nurse for LLOYD.
--- NOTE | 2021-11-06 19:18 | NUR ---
MS RN OPENING NOTES RECEIVED PT LYING IN BED, HOB ELEVATED AT 70 DEGREES. A/O X4. BREATHING EVEN AND NON-LABORED ON ROOM AIR. C/O PAIN ON HIS RIGHT LOWER EXTREMITY, BACK OF HEAD (RIGHT SIDE) AND RIGHT EAR 10/10. NPI INEFFECTIVE. RECEIVED PRN MORPHINE SO4 AT 1620. HAS RIGHT UPPER ARM MIDLINE WITH NS RUNNING AT 150 ML/HR. NO S/S OF INFILTRATION NOTED. SAFETY PRECAUTIONS IN PLACE. WILL CONTINUE PLAN OF CARE.
[2021-11-06 20:00] VITALS: BP 125/60
--- NOTE | 2021-11-06 20:35 | NUR ---
MS RN NOTES PT C/O CHRONIC RIGHT LOWER EXTREMITY, HEAD AND RIGHT EAR PAIN. VS WNL. ADMINISTERED PRN MORPHINE SO4. TOLERATED WELL.
[2021-11-07] MEDS: MORPHINE SULFATE INJ 2 MG/ML DISP.SYRIN IV PRN ×5 (00:26→16:44)
--- NOTE | 2021-11-07 00:27 | NUR ---
MS RN NOTES PT C/O CHRONIC RIGHT FOOT PAIN 03/09. VS WNL. ADMINISTERED PRN MORPHINE SO4. TOLERATED WELL.
[2021-11-07 04:30] VITALS: BP 123/56
--- NOTE | 2021-11-07 04:34 | NUR ---
MS RN NOTES PT C/O CHRONIC RIGHT FOOT PAIN 02/07. CHANGES IN V/S NOTED. ADMINISTERED PRN MORPHINE SO4. TOLERATED WELL.
[2021-11-07] MEDS: CLINDAMYCIN HCL 150 MG CAPSULE PO SCH ×3 (05:24→17:09)
[2021-11-07] MEDS: IV NS 0.9% 1,000 ML IV PRN (05:31)
[2021-11-07 05:58] LABS: CALCIUM, SERUM 7.8 mg/dL (8.5-10.1); CREATININE 2.1 mg/dL (0.6-1.3); POTASSIUM 4.4 mmol/L (3.5-5.1)
[2021-11-07 06:13] LABS: BASOPHILS # (AUTO) 0.1 K/uL (0.0-0.2); BASOPHILS % (AUTO) 0.7 % (0.0-2.0); EOSINOPHILS % (AUTO) 2.6 % (0.0-6.0); HEMATOCRIT 26 % (39-51); HEMOGLOBIN 8.3 g/dL (13.5-17.5); LYMPHOCYTES # (AUTO) 0.8 K/uL (0.8-4.8); MEAN CORPUSCULAR HGB CONC 32 g/dl (31.0-36.0); MEAN CORPUSCULAR VOLUME 74 fL (80-96); MONOCYTES # (AUTO) 0.7 K/uL (0.1-1.30); MONOCYTES % (AUTO) 7.5 % (2.0-12.0); NEUTROPHILS # (AUTO) 7.4 K/uL (1.8-8.9); NEUTROPHILS % (AUTO) 80.2 % (43.0-81.0); PLATELET COUNT (AUTO) 504 K/uL (150-450); RED BLOOD CELL COUNT(AUTO) 3.48 MIL/uL (4.5-6.0); WHITE BLOOD COUNT (AUTO) 9.2 K/uL (4.3-11.0)
--- NOTE | 2021-11-07 06:28 | NUR ---
MS RN CLOSING NOTES PT LYING IN BED WITH EYES CLOSED. EASY TO AROUSE. A/O X4. NO SOB OR , TOLERATING ROOM AIR WELL. NO ACUTE DISTRESS NOTED. AFEBRILE. C/O PAIN ON HIS RIGHT LOWER EXTREMITY 01/07. VERBALIZED THAT MEDICATION RELIEF LASTS FOR 30 MINS-1 HOUR ONLY. HAS RIGHT UPPER ARM MIDLINE WITH NS RUNNING AT 150 ML/HR. INTACT, PATENT AND FLUSHING. ALL DUE MEDS GIVEN. KEPT DRY AND COMFORTABLE. CLEAR YELLOW URINE OUTPUT OF 2700 ML. SAFETY MEASURES IN PLACE: BED LOW AND LOCKED, SIDE RAILS UP X2, CALL LIGHT WITHIN REACH.
[2021-11-07] MEDS: MULTIVIT W/MINERALS 1 TAB TABLET PO SCH (08:08)
[2021-11-07] MEDS: PROSOURCE / PROSTAT (PYXIS) 30 ML UDC PO SCH (08:08)
[2021-11-07] MEDS: FOLIC ACID 1 MG TABLET PO SCH (08:08)
[2021-11-07] MEDS: LEVOTHYROXINE SODIUM 75 MCG TABLET PO SCH (08:08)
[2021-11-07] MEDS: VITAMINS A AND D 56.7 GM TUBE TP SCH (08:14)
--- NOTE | 2021-11-07 08:15 | NUR ---
RN NOTES UP IN BED, AWAKE AND VERBALLY RESPONSIVE. CURRENTLY EATING BREAKFAST. NOT IN ACUTE DISTRESS. BREATHING EVEN AND UNLABORED. REQUESTED FOR PAIN MEDICATION; PAIN ASSESSED AND MANAGED ACCORDINGLY. SAFETY MEASURES IN PLACE.
[2021-11-07] MEDS ORDERED: Vitamins A And D TP (11:30)
[2021-11-07] MEDS ORDERED: NORM10004 IV (11:30)
[2021-11-07] MEDS ORDERED: CLIN-27 PO (11:30)
--- NOTE | 2021-11-07 11:57 | NUR ---
RN NOTES PATIENT SEEN BY EMILI BRAUN NP; MADE AWARE OF PLAN OF CARE.
--- NOTE | 2021-11-07 13:00 | NUR ---
RN NOTES PATIENT SEEN BY DR. BOB FOR PODIATRY F/U.
--- NOTE | 2021-11-07 14:41 | NUR ---
RN NOTES PHOTOS OF SKIN ISSUES TAKEN AND PLACED IN THE CHART; UNABLE TO TAKE PHOTOS OF OTHER SKIN ISSUES PATIENT SAID NO AND REFUSED.
--- NOTE | 2021-11-07 16:19 | NUR ---
RN NOTES PATIENT REPORT AND DISCHARGE INSTRUCTIONS/EDUCATION GIVEN TO PABLO RN TEACHER [facility], AT [facility]. ENDORSED NEW MEDICATION ORDERS POST D/C.
--- NOTE | 2021-11-07 18:06 | NUR ---
RN NOTES DISCHARGE FORM AND BELONGINGS LIST FORM SIGNED BY PATIENT. BELONGINGS AT BEDSIDE. ZEYNEP MIDLINE KEPT INTACT.
--- NOTE | 2021-11-07 18:27 | NUR ---
RN NOTES BEDSIDE ENDORSEMENT GIVEN TO EMT. PATIENT PICKED UP FOR DISCHARGE BACK TO [facility]. DISCHARGE INFO SENT W/ PATIENT AND EMT. CHARGE NURSE AND MD AWARE OF DISCHARGE.
== END 2021-11-07 18:57 | DRG 871 ==
LOC: ER 11:25 → MED 18:51
PROVIDERS: ADMIT Nurse Practitioner Acute Care; ATTEND Nurse Practitioner Acute Care
PROC: 30233N1 Transfusion of Nonautologous Red Blood Cells into Peripheral Vein, Percutaneous Approach (ICD-10-PCS; 2021-10-30)
PROC: 05H533Z Insertion of Infusion Device into Right Subclavian Vein, Percutaneous Approach (ICD-10-PCS; principal; 2021-11-03)
PROC: B546ZZA Ultrasonography of Right Subclavian Vein, Guidance (ICD-10-PCS; 2021-11-03)
PROC: 0HBRXZZ Excision of Toe Nail, External Approach (ICD-10-PCS; 2021-11-04)
DX: A41.9 Sepsis, unspecified organism (principal); N17.0 Acute kidney failure with tubular necrosis; E44.0 Moderate protein-calorie malnutrition; E87.1 Hypo-osmolality and hyponatremia; N39.0 Urinary tract infection, site not specified; E87.2 Acidosis; J98.11 Atelectasis; L03.115 Cellulitis of right lower limb; M86.671 Other chronic osteomyelitis, right ankle and foot; B96.20 Unspecified Escherichia coli [E. coli] as the cause of diseases classified elsewhere; E03.9 Hypothyroidism, unspecified; D64.9 Anemia, unspecified; E66.9 Obesity, unspecified; E86.1 Hypovolemia; E88.09 Other disorders of plasma-protein metabolism, not elsewhere classified; H53.2 Diplopia; J45.909 Unspecified asthma, uncomplicated; Z89.411 Acquired absence of right great toe; L80 Vitiligo; L60.3 Nail dystrophy; Z68.30 Body mass index [BMI] 30.0-30.9, adult; H91.91 Unspecified hearing loss, right ear; G90.9 Disorder of the autonomic nervous system, unspecified; F39 Unspecified mood [affective] disorder; F31.9 Bipolar disorder, unspecified; F60.3 Borderline personality disorder; Z71.3 Dietary counseling and surveillance; N18.9 Chronic kidney disease, unspecified
CPT/HCPCS: 36410; 36415; 71045-TC; 76770-TC; 80048-TC; 80053-TC; 80076-TC; 80202-TC; 81001; 82550-TC; 82570-TC; 83520; 83605-TC; 83735-TC; 83970; 84100-TC; 84155; 84155-TC; 84165; 84300-TC; 84484-TC; 85025-TC; 85730-TC; 86140-TC; 86225; 86235; 86256; 86706; 86803; 86850-TC; 87040-TC; 87081-TC; 87086-TC; 87186-TC; 87340; 87806; 93307-TC; 93970-TC; 94799-TC; A6403; C9803; G0378; J0692; J0696; J1644; J2270; J2543; J3370; J3490; J7030; J7060; P9016